=== PATIENT | female | born 2000 | race African-American/Black ===

== ENCOUNTER 2020-01-20 16:26 | Inpatient (IN) | payer MEDICAID ==
[~2020-01-20] VITALS: Ht 167.6 cm; Wt 78.7 kg
[2020-01-21] MEDS ORDERED: HALOPERIDOL 5 MG TABLET PO PRN (01:15)
[2020-01-21] MEDS ORDERED: ZOLPIDEM TARTRATE 10 MG TABLET PO PRN (01:15)
[2020-01-21] MEDS ORDERED: LORazepam 2 MG TABLET PO PRN (01:15)
[2020-01-21] MEDS ORDERED: INFLUENZA VIRUS VACCINE QVS 2019-20 (3YR+)/PF 60 MCG/0.5 ML SYRINGE IM ONE (01:30)
[2020-01-21 01:35] VITALS: BP 110/72
[2020-01-21] MEDS ORDERED: MAGNESIUM HYDROXIDE SUSPENSION 30 ML UDCUP PO PRN (12:00)
[2020-01-21] MEDS ORDERED: ALBUTEROL SULFATE HFA 90 MCG/PUFF 8 GM INHALER IH PRN (12:00)
[2020-01-21] MEDS ORDERED: DOCUSATE SODIUM 100 MG CAPSULE PO PRN (12:00)
[2020-01-21] MEDS ORDERED: MAG HYDROX/AL HYDROX/SIMETH ES 30 ML SUSPENSION UDCUP PO PRN (12:00)
[2020-01-21] MEDS ORDERED: ACETAMINOPHEN 325 MG TABLET PO PRN (12:00)
[2020-01-21] MEDS ORDERED: IBUPROFEN 400 MG TABLET PO PRN (12:00)
[2020-01-21] MEDS ORDERED: CloNIDine HCL 0.1 MG TABLET PO PRN (12:00)
[2020-01-21] MEDS ORDERED: NICOTINE 14 MG/24 HOUR PATCH TD PRN (12:00)
[2020-01-21] MEDS ORDERED: LOPERAMIDE HCL 2 MG CAPSULE PO PRN (12:00)
[2020-01-21] MEDS ORDERED: PETROLATUM,WHITE 28 GM JELLY TP PRN (12:00)
[2020-01-21] MEDS ORDERED: GuaiFENesin/D-METHORPHAN [SUGAR-FREE] 200-20MG/10 ML SYRUP UDCUP PO PRN (12:00)
[2020-01-21 16:52] VITALS: BP 128/85
[2020-01-21] MEDS: OLANZapine 5 MG TABLET PO SCH (17:00)
[2020-01-22] MEDS: BuPROPion HCL XL 150 MG ER TABLET PO SCH (09:31)
[2020-01-22] MEDS: OLANZapine 5 MG TABLET PO SCH ×2 (09:31→16:44)
[2020-01-23] MEDS: BuPROPion HCL XL 150 MG ER TABLET PO SCH (08:38)
[2020-01-23] MEDS: OLANZapine 5 MG TABLET PO SCH ×2 (08:39→17:00)
[2020-01-23 08:57] VITALS: BP 125/74
[2020-01-23] MEDS ORDERED: LORazepam 2 MG/ML VIAL IM ONE (13:30)
[2020-01-23] MEDS ORDERED: HALOPERIDOL LACTATE 5 MG/ML VIAL IM ONE (13:30)
[2020-01-23] MEDS ORDERED: DiphenhydrAMINE HCL 50 MG/ML VIAL IM ONE (13:30)
[2020-01-23 16:05] VITALS: BP 100/60
[2020-01-24] MEDS: BuPROPion HCL XL 150 MG ER TABLET PO SCH (08:55)
[2020-01-24] MEDS: OLANZapine 5 MG TABLET PO SCH ×2 (08:55→16:12)
[2020-01-24] MEDS: ONDANSETRON HCL 4 MG TABLET PO PRN (18:26)
[2020-01-25] MEDS: OLANZapine 5 MG TABLET PO SCH ×2 (08:42→16:58)
[2020-01-25] MEDS: BuPROPion HCL XL 150 MG ER TABLET PO SCH (08:42)
[2020-01-25 16:56] VITALS: BP 120/78
[2020-01-26] MEDS: OLANZapine 5 MG TABLET PO SCH ×2 (08:36→16:34)
[2020-01-26] MEDS: BuPROPion HCL XL 150 MG ER TABLET PO SCH (08:36)
[2020-01-26] MEDS ORDERED: LORazepam 2 MG TABLET PO PRN (12:30)
[2020-01-26 21:29] VITALS: BP 120/82
[2020-01-27] MEDS: BuPROPion HCL XL 150 MG ER TABLET PO SCH (09:00)
[2020-01-27] MEDS: OLANZapine 5 MG TABLET PO SCH ×3 (09:00→17:00)
[2020-01-27] MEDS ORDERED: LORazepam 2 MG/ML VIAL IM ONE (16:30)
[2020-01-27] MEDS: DiphenhydrAMINE HCL 50 MG/ML VIAL IM PRN (17:49)
[2020-01-27] MEDS: HALOPERIDOL LACTATE 5 MG/ML VIAL IM PRN (17:51)
[2020-01-27] MEDS: LORazepam 2 MG/ML VIAL IM PRN (17:52)
[2020-01-27 18:33] VITALS: BP 124/76
[2020-01-28] MEDS: OLANZapine 5 MG TABLET PO SCH ×2 (09:00→16:36)
[2020-01-28] MEDS: BuPROPion HCL XL 150 MG ER TABLET PO SCH (09:00)
[2020-01-28] MEDS: LORazepam 2 MG/ML VIAL IM PRN ×2 (10:14→22:07)
[2020-01-28] MEDS: DiphenhydrAMINE HCL 50 MG/ML VIAL IM PRN ×2 (10:15→22:07)
[2020-01-28] MEDS: HALOPERIDOL LACTATE 5 MG/ML VIAL IM PRN ×2 (10:15→22:07)
[2020-01-29] MEDS: BuPROPion HCL XL 150 MG ER TABLET PO SCH (09:00)
[2020-01-29] MEDS: OLANZapine 5 MG TABLET PO SCH ×2 (09:00→17:00)
[2020-01-29] MEDS: LORazepam 2 MG/ML VIAL IM PRN ×2 (11:15→17:14)
[2020-01-29] MEDS: DiphenhydrAMINE HCL 50 MG/ML VIAL IM PRN ×2 (11:15→17:14)
[2020-01-29] MEDS: HALOPERIDOL LACTATE 5 MG/ML VIAL IM PRN ×2 (11:17→17:16)
[2020-01-30] MEDS: BuPROPion HCL XL 150 MG ER TABLET PO SCH (09:00)
[2020-01-30] MEDS: OLANZapine 5 MG TABLET PO SCH ×3 (09:00→16:47)
[2020-01-30] MEDS: DiphenhydrAMINE HCL 50 MG/ML VIAL IM PRN (09:53)
[2020-01-30] MEDS: HALOPERIDOL LACTATE 5 MG/ML VIAL IM PRN (09:55)
[2020-01-30] MEDS: LORazepam 2 MG/ML VIAL IM PRN (09:56)
[2020-01-31] MEDS: BuPROPion HCL XL 150 MG ER TABLET PO SCH (08:04)
[2020-01-31] MEDS: OLANZapine 5 MG TABLET PO SCH ×3 (08:04→15:54)
[2020-01-31 16:50] VITALS: BP 113/67
[2020-02-01] MEDS: BuPROPion HCL XL 150 MG ER TABLET PO SCH (09:00)
[2020-02-01] MEDS: OLANZapine 5 MG TABLET PO SCH ×3 (09:00→16:18)
[2020-02-01] MEDS: LORazepam 2 MG/ML VIAL IM PRN ×3 (09:49→17:25)
[2020-02-01] MEDS: HALOPERIDOL LACTATE 5 MG/ML VIAL IM PRN ×3 (09:51→17:28)
[2020-02-01] MEDS: DiphenhydrAMINE HCL 50 MG/ML VIAL IM PRN ×3 (09:51→17:25)
[2020-02-02] MEDS: BuPROPion HCL XL 150 MG ER TABLET PO SCH (09:00)
[2020-02-02] MEDS: OLANZapine 5 MG TABLET PO SCH ×3 (09:00→17:00)
[2020-02-02] MEDS: HALOPERIDOL LACTATE 5 MG/ML VIAL IM PRN ×4 (10:00→21:00)
[2020-02-02] MEDS: LORazepam 2 MG/ML VIAL IM PRN ×4 (10:00→20:57)
[2020-02-02] MEDS: DiphenhydrAMINE HCL 50 MG/ML VIAL IM PRN ×4 (10:00→20:58)
[2020-02-03] MEDS: OLANZapine 5 MG TABLET PO SCH ×2 (09:00→16:47)
[2020-02-03] MEDS: BuPROPion HCL XL 150 MG ER TABLET PO SCH (09:00)
[2020-02-03] MEDS: LORazepam 2 MG/ML VIAL IM PRN (09:36)
[2020-02-03] MEDS: HALOPERIDOL LACTATE 5 MG/ML VIAL IM PRN (09:37)
[2020-02-03] MEDS: DiphenhydrAMINE HCL 50 MG/ML VIAL IM PRN (09:37)
[2020-02-03] MEDS ORDERED: LORazepam 2 MG/ML VIAL IM PRN (12:15)
[2020-02-03] MEDS ORDERED: HALOPERIDOL LACTATE 5 MG/ML VIAL IM PRN (12:15)
[2020-02-03] MEDS ORDERED: DiphenhydrAMINE HCL 50 MG/ML VIAL IM PRN (12:15)
[2020-02-04] MEDS: BuPROPion HCL XL 150 MG ER TABLET PO SCH ×2 (08:16→09:00)
[2020-02-04] MEDS: OLANZapine 5 MG TABLET PO SCH ×3 (08:16→16:40)
[2020-02-05] MEDS: OLANZapine 5 MG TABLET PO SCH ×2 (08:56→17:00)
[2020-02-05] MEDS: BuPROPion HCL XL 150 MG ER TABLET PO SCH (08:57)
[2020-02-05] MEDS ORDERED: BUPR75 PO (09:46)
[2020-02-05] MEDS ORDERED: OLAN5TAB2 PO (09:46)
[2020-02-06] MEDS: BuPROPion HCL XL 150 MG ER TABLET PO SCH (09:00)
[2020-02-06] MEDS: OLANZapine 5 MG TABLET PO SCH ×2 (09:00→18:30)
[2020-02-06] MEDS: ONDANSETRON HCL 4 MG TABLET PO PRN (18:30)
[2020-02-07] MEDS: BuPROPion HCL XL 150 MG ER TABLET PO SCH (09:00)
[2020-02-07] MEDS: OLANZapine 5 MG TABLET PO SCH ×2 (09:00→16:49)
[2020-02-07] MEDS ORDERED: BUPR-93 PO (12:54)
[2020-02-08] MEDS: BuPROPion HCL XL 150 MG ER TABLET PO SCH (08:13)
[2020-02-08] MEDS: OLANZapine 5 MG TABLET PO SCH ×2 (08:13→18:42)
[2020-02-09] MEDS: BuPROPion HCL XL 150 MG ER TABLET PO SCH (09:00)
[2020-02-09] MEDS: OLANZapine 5 MG TABLET PO SCH ×2 (09:00→16:28)
[2020-02-10] MEDS: OLANZapine 5 MG TABLET PO SCH ×2 (09:00→16:40)
[2020-02-10] MEDS: BuPROPion HCL XL 150 MG ER TABLET PO SCH (09:00)
[2020-02-11] MEDS: BuPROPion HCL XL 150 MG ER TABLET PO SCH ×2 (08:23→08:27)
[2020-02-11] MEDS: OLANZapine 5 MG TABLET PO SCH ×3 (08:23→17:00)
[2020-02-12] MEDS: OLANZapine 5 MG TABLET PO SCH ×2 (08:20→16:51)
[2020-02-12] MEDS: BuPROPion HCL XL 150 MG ER TABLET PO SCH (08:21)
== END 2020-02-12 18:00 | disposition home or self-care (01) | DRG 885 ==
LOC: 3EI 23:45
PROVIDERS: ADMIT Psychiatry & Neurology Psychiatry; ATTEND Psychiatry & Neurology Psychiatry
DX: F25.0 Schizoaffective disorder, bipolar type (principal); G93.40 Encephalopathy, unspecified; G47.00 Insomnia, unspecified; K59.00 Constipation, unspecified; F19.10 Other psychoactive substance abuse, uncomplicated; Z91.19 Patient's noncompliance with other medical treatment and regimen; Z79.899 Other long term (current) drug therapy; Z28.21 Immunization not carried out because of patient refusal
CPT/HCPCS: J1200; J1630; J2060; Q0162